=== PATIENT | male | born 1960 | race African-American/Black ===

== ENCOUNTER 2017-01-27 23:11 | Emergency (ER) | payer SELFPAY ==
[~2017-01-27] VITALS: Ht 188 cm; Wt 93.2 kg
[2017-01-27] MEDS ORDERED: CHOLESTEROL PO (23:32)
[2017-01-27 23:38] VITALS: BP 159/69
== END 2017-01-27 23:49 | disposition home or self-care (01) ==
LOC: EMS 23:12
DX: Z04.1 Encounter for examination and observation following transport accident (principal); E78.00 Pure hypercholesterolemia, unspecified; F10.929 Alcohol use, unspecified with intoxication, unspecified
CPT/HCPCS: 99283